=== PATIENT | female | born 1995 | race American Indian/Alaskan Native ===

== ENCOUNTER 2016-04-13 12:42 | Emergency (ER) | payer SELFPAY ==
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
[2016-04-13 14:48] LABS: Basophils % (Auto) 0.4 % (0.0-1.8); Eosinophils % (Auto) 0.6 % (0.0-4.3); Hemoglobin 13.9 gm/dl (10.1-14.3); Mean Corpuscular HGB Conc 34 % (30-34); Mean Corpuscular Hemoglobin 32 pg (28-32); Mean Corpuscular Volume 94 fl (79-97); Platelet Count 334 K/mm3 (140-440); Red Blood Count 4.34 M/mm3 (3.65-5.03); Red Cell Distribution Width 12.9 % (13.2-15.2); White Blood Count 5.8 K/mm3 (4.5-11.0)
--- NOTE | 2016-04-13 15:01 | Emergency Department Report ---
HPI - General Chief Complaint: Psych Time Seen by Provider: 04/13/16 14:54 - HPI HPI: This is a 20-year-old Afro-[place] female presents to the emergency department via police with complaint of auditory hallucinations, suicidal and homicidal ideations. The patient says that she has a history of bipolar disorder and paranoid schizophrenia, although diagnosed about 2 years ago. She was on Risperdal as of one month ago but stopped it because "it was not working" and caused "jaw locking." She denies any current primary care doctor or psychiatrist. Patient says that she is hearing voices that are telling her to harm herself and others. The patient says "I know I'm not supposed to do that but I'm scared." She does not have any plan. Patient says that the voices used to be people that she recognized or had previously known but now they are "demons." She denies any alcohol or illicit drug use or abuse. Patient says she recently quit smoking tobacco. ED Past Medical Hx - Past Medical History Hx Psychiatric Treatment: Yes (Depression/ BIPOLAR / PARANOID SCHIZOPHRENIA) - Surgical History Past Surgical History?: No - Social History Smoking Status: Current Some Day Smoker Substance Use Type: None - Medications Home Medications: Home Medications Medication Instructions Recorded Confirmed Last Taken Type No Known Home Medications [No 06/05/15 04/13/16 Unknown History Reported Home Medications] ED Review of Systems ROS: Stated complaint: HEARING VOICES/SCHIZOPHRENIA Other details as noted in HPI Comment: All other systems reviewed and negative Constitutional: denies: chills, fever Eyes: denies: eye pain, eye discharge, vision change ENT: denies: ear pain, throat pain Respiratory: denies: cough, shortness of breath, wheezing Cardiovascular: denies: chest pain, palpitations Gastrointestinal: denies: abdominal pain, nausea, diarrhea Genitourinary: denies: urgency, dysuria, discharge Musculoskeletal: denies: back pain, joint swelling, arthralgia Skin: denies: rash, lesions Neurological: denies: headache, weakness, paresthesias Psychiatric: auditory hallucinations, homicidal thoughts, suicidal thoughts. denies: visual hallucinations Physical Exam - Physical Exam Vital Signs: Vital Signs 04/13/16 04/13/16 13:19 14:54 Temperature 98.1 F Pulse Rate 92 H Respiratory 17 15 Rate Blood Pressure 111/66 O2 Sat by Pulse 100 Oximetry Physical Exam: GENERAL: The patient is well-developed well-nourished. HEENT: Normocephalic. Atraumatic. Extraocular motions are intact. Patient has moist mucous membranes. He was equal reactive to light bilaterally. NECK: Supple. Trachea is midline. CHEST/LUNGS: Clear to auscultation. There is no respiratory distress noted. HEART/CARDIOVASCULAR: Regular. There is no tachycardia. There is no gallop rub or murmur. ABDOMEN: Abdomen is soft, nontender. Patient has normal bowel sounds. There is no abdominal distention. SKIN: There is no rash. There is no diaphoresis. NEURO: The patient is awake, alert, and oriented. The patient is cooperative. The patient has no focal neurologic deficits. The patient has normal speech and gait. Cranial nerves II through XII grossly intact. MUSCULOSKELETAL: There is no tenderness or deformity. There is no limitation range of motion. There is no evidence of acute injury. ED Course Vital Signs 04/13/16 04/13/16 13:19 14:54 Temperature 98.1 F Pulse Rate 92 H Respiratory 17 15 Rate Blood Pressure 111/66 O2 Sat by Pulse 100 Oximetry ED Medical Decision Making - Lab Data Result diagrams: 04/13/16 14:31 04/13/16 14:31 - Medical Decision Making 20-year-old female with history of paranoid schizophrenia and bipolar disorder presents with complaint of auditory hallucinations that cause suicidal and homicidal ideations. Patient currently calm and appropriate. Vital signs stable throughout her ED course. Patient's labs are mostly unremarkable. Negative blood alcohol level. Presumptive positive for amphetamines and marijuana. Patient has been made a 1013 secondary to her suicidal and homicidal ideations. She is medically cleared for psychiatric placement and the crisis therapist team has been contacted to assist. - Differential Diagnosis bipolar disorder, schizophrenia, schizoaffective, substance abuse Critical Care Time: No Critical care attestation.: If time is entered above; I have spent that time in minutes in the direct care of this critically ill patient, excluding procedure time. ED Disposition Clinical Impression: Auditory hallucinations, Suicidal ideations Schizophrenia Qualifiers: Schizophrenia type: unspecified Qualified Code(s): F20.9 - Schizophrenia, unspecified Disposition: DC/TX PSY HOSP/PSY UNIT Is pt being admited?: No Condition: Stable Time of Disposition: 16:22
[2016-04-13 15:03] LABS: BUN/Creatinine Ratio 12.85; Blood Urea Nitrogen 9 mg/dL (7-17); Calcium 8.8 mg/dL (8.4-10.2); Carbon Dioxide 26 mmol/L (22-30); Chloride 101.2 mmol/L (98-107); Glucose 94 mg/dL (65-100); Potassium 3.8 mmol/L (3.6-5.0); Sodium 142 mmol/L (137-145)
[2016-04-13 15:13] LABS: Anion Gap 19 mmol/L
[2016-04-13 15:40] LABS: Urine Drugs of Abuse Note Disclamer
[2016-04-13 15:56] LABS: Bacteria,Urine 1+ /HPF (Negative); Bilirubin,Urine NEG (Negative); Blood,Urine MOD (Negative); Ketones,Urine NEG (Negative); Leukocyte Esterase,Urine NEG (Negative); Mucus,Urine 3+ /HPF; Nitrite,Urine NEG (Negative); Protein,Urine <15 mg/dL mg/dL (Negative); Urobilinogen,Urine < 2.0 mg/dL (<2.0)
[2016-04-13] MEDS ORDERED: NACL ONE (17:37)
[2016-04-14] MEDS ORDERED: TYLENOL PO PRN (12:43)
[2016-04-14] MEDS ORDERED: ATIVAN ONE (15:56)
[2016-04-15 19:49] VITALS: BP 108/54
== END 2016-04-15 22:45 ==
LOC: EEVIPCON 12:42 → ED 12:42
DX: F20.0 Paranoid schizophrenia (principal); F31.9 Bipolar disorder, unspecified; R44.0 Auditory hallucinations; R45.851 Suicidal ideations; Z72.0 Tobacco use
CPT/HCPCS: 36415; 80048; 80307; 81001; 81025; 85025; 99285; G0480; 80320; J2060

== ENCOUNTER 2016-08-28 22:07 | Emergency (ER) | payer SELFPAY ==
[2016-08-28] MEDS ORDERED: ZOFRAN ONE (22:45)
[2016-08-28] MEDS ORDERED: ZOFRAN IV ONE (22:49)
[2016-08-28] MEDS ORDERED: MAGNESIUM SULFATE 2GM/50ML 0 GM/0 ML BAG IV ONE (22:51)
[2016-08-28 23:01] LABS: Basophils % (Auto) 0.3 % (0.0-1.8); Eosinophils % (Auto) 0.3 % (0.0-4.3); Hematocrit 47.5 % (30.3-42.9); Hemoglobin 16.1 gm/dl (10.1-14.3); Mean Corpuscular HGB Conc 34 % (30-34); Mean Corpuscular Hemoglobin 31 pg (28-32); Mean Corpuscular Volume 92 fl (79-97); Platelet Count 380 K/mm3 (140-440); Red Blood Count 5.14 M/mm3 (3.65-5.03); Red Cell Distribution Width 13.8 % (13.2-15.2); White Blood Count 9.4 K/mm3 (4.5-11.0)
[2016-08-28 23:28] LABS: Alanine Aminotransferase 16 units/L (7-56); Albumin 4.8 g/dL (3.9-5); Albumin/Globulin Ratio 1.1 %; Alkaline Phosphatase 107 units/L (35-129); Anion Gap 25 mmol/L; BUN/Creatinine Ratio 12.22; Blood Urea Nitrogen 11 mg/dL (7-17); Calcium 9.6 mg/dL (8.4-10.2); Carbon Dioxide 26 mmol/L (22-30); Chloride 94.3 mmol/L (98-107); Glucose 132 mg/dL (65-100); Lipase 21 units/L (13-60); Sodium 142 mmol/L (137-145); Total Protein 9.3 g/dL (6.3-8.2)
[2016-08-28 23:37] LABS: Potassium 2.8 mmol/L (3.6-5.0)
[2016-08-29] MEDS ORDERED: NACL 0.9% 1000 ML 1,000 ML ONE (00:32)
[2016-08-29] MEDS ORDERED: K-DUR PO ONE ×3 (00:32→02:56)
[2016-08-29] MEDS ORDERED: REGLAN ONE (00:32)
[2016-08-29] MEDS ORDERED: REGLAN IV ONE (00:32)
[2016-08-29] MEDS ORDERED: NACL 0.9% 1000 ML 1,000 ML IV ONE ×2 (00:33→00:43)
--- NOTE | 2016-08-29 00:35 | Emergency Department Report ---
ED Abdominal Pain HPI - General Chief Complaint: Abdominal Pain Stated Complaint: CP/ABD PAIN/VARGHESE/VOMITING Time Seen by Provider: 08/29/16 00:31 Source: patient Mode of arrival: Ambulatory Limitations: No Limitations - History of Present Illness Initial Comments: Patient is a 21-year-old female, unknown to me, presents to the ER with vomiting and abdominal pain. Patient reports for the last 4 days she's been constantly vomiting unrelated to food, having epigastric pain, and diffuse lower abdominal pain. Patient reports last bowel movement was one week ago but she still having flatus. No history abdominal surgery in the past. She denies any outside travel, or any persons in her home with similar symptoms. Patient has not tried any [id number] medications. Otherwise no fevers, chills, headache, dizziness, chest pain, shortness of breath, extremity pain, extremity swelling, dysuria, hematuria, back pain, travel, or sick contacts. - Related Data Previous Rx's Medication Instructions Recorded Last Taken Type HYDROcodone/APAP 5-325 [[place] 1 each PO Q6HR PRN #10 tablet 05/30/16 Unknown Rx 5/325] Allergies Allergy/AdvReac Type Severity Reaction Status Date / Time sulfamethoxazole Allergy Itching Verified 04/13/16 13:17 [From Bactrim] trimethoprim [From Bactrim] Allergy Itching Verified 04/13/16 13:17 ED Review of Systems ROS: Stated complaint: CP/ABD PAIN/VARGHESE/VOMITING Other details as noted in HPI Comment: All other systems reviewed and negative ED Past Medical Hx - Past Medical History Previous Medical History?: Yes Hx Psychiatric Treatment: Yes (Depression/ BIPOLAR / PARANOID SCHIZOPHRENIA) - Surgical History Past Surgical History?: No - Social History Smoking Status: Never Smoker Substance Use Type: Alcohol, Marijuana - Medications Home Medications: Home Medications Medication Instructions Recorded Confirmed Last Taken Type HYDROcodone/APAP 5-325 [[place] 1 each PO Q6HR PRN #10 tablet 05/30/16 Unknown Rx 5/325] ED Physical Exam - General Limitations: No Limitations General appearance: alert, in no apparent distress, other (Vomiting) - Head Head exam: Present: atraumatic, normocephalic - Eye Eye exam: Present: normal appearance, PERRL, EOMI. Absent: scleral icterus, conjunctival injection, nystagmus Pupils: Present: normal accommodation - ENT ENT exam: Present: normal exam, mucous membranes moist - Neck Neck exam: Present: normal inspection. Absent: tenderness, meningismus - Respiratory Respiratory exam: Present: normal lung sounds bilaterally. Absent: respiratory distress, wheezes, rales, rhonchi, stridor - Cardiovascular Cardiovascular Exam: Present: regular rate, normal rhythm, normal heart sounds. Absent: systolic murmur, diastolic murmur, rubs, gallop - GI/Abdominal GI/Abdominal exam: Present: soft, tenderness (Epigastrium, diffuse RLQ and LLQ,) , normal bowel sounds, hypoactive bowel sounds. Absent: distended, guarding, rebound, rigid - Rectal Rectal exam: Present: deferred - Extremities Exam Extremities exam: Present: normal inspection, full ROM, normal capillary refill. Absent: tenderness, pedal edema, joint swelling - Back Exam Back exam: Present: normal inspection, full ROM. Absent: tenderness - Neurological Exam Neurological exam: Present: alert, oriented X3 - Psychiatric Psychiatric exam: Present: normal affect, normal mood - Skin Skin exam: Present: warm, dry, intact, normal color. Absent: rash ED Course Vital Signs 08/28/16 22:32 Temperature 98.9 F Pulse Rate 101 H Respiratory 18 Rate Blood Pressure 135/74 O2 Sat by Pulse 99 Oximetry ED Medical Decision Making - Lab Data Result diagrams: 08/28/16 22:50 08/28/16 22:50 - EKG Data -: EKG Interpreted by Me - EKG Data 08/29/16 2209 Normal sinus rhythm at 90 bpm, QTC 425 ms, normal axis, LVH, TWI in III, aVF, no ST changes, no STEMI Critical care attestation.: If time is entered above; I have spent that time in minutes in the direct care of this critically ill patient, excluding procedure time. ED Disposition Clinical Impression: Abdominal pain, Nausea and vomiting, Hypokalemia, Dehydration Condition: Stable Instructions: Abdominal Pain (ED)
[2016-08-29] MEDS ORDERED: MORPHINE IV ONE ×2 (00:39→02:56)
[2016-08-29] MEDS: KCL 10MEQ/100ML 10 MEQ/100 ML BAG IV SCH ×6 (01:13→04:30)
--- NOTE | 2016-08-29 02:00 | Cat Scan Report ---
FINAL REPORT PROCEDURE: CT ABDOMEN PELVIS W CON TECHNIQUE: Computerized axial tomography of the abdomen and pelvis was performed after the IV injection of iodinated nonionic contrast. HISTORY: diffuse pain COMPARISON: 06/05/2015 FINDINGS: Visualized lower thorax: No significant abnormality. Liver: Normal size and attenuation. Spleen: Normal size and attenuation. Gallbladder and biliary system: Normal. Pancreas: Normal. Adrenals: Normal. Kidneys: Normal. GI tract: Stomach is normal. Small bowel has a normal appearance with no evidence of obstruction, ileus or enteritis. The cecum, appendix and colon are normal.. Lymph nodes and mesentery: Normal. Vasculature: Normal. Bladder: Normal. Reproductive organs: The uterus is normal. There remains cystic regions in the lower cervical area. Large nabothian cysts are suspected. These have not changed significantly in size or appearance since prior study. On the right a cyst measures 32 millimeters. On the left a cyst measures 11 millimeters.. Peritoneum: No free fluid. Musculoskeletal structures: No significant abnormality. Other: None. IMPRESSION: There is no evidence of intestinal urinary tract obstruction. No ileus or enteritis. The appendix is normal.
[2016-08-29 02:34] VITALS: BP 139/92
== END 2016-08-29 04:54 | disposition home or self-care (01) ==
LOC: ED 22:07
DX: R10.9 Unspecified abdominal pain (principal); R11.2 Nausea with vomiting, unspecified; E87.6 Hypokalemia; E86.0 Dehydration; F12.10 Cannabis abuse, uncomplicated; Z88.2 Allergy status to sulfonamides; Z88.6 Allergy status to analgesic agent
CPT/HCPCS: 36415; 74177; 80053; 83690; 84703; 85025; 93005; 93010; 96361; 96374; 96375; 96376; 99284; J2270; J2405; J2765; J3480; J7030; Q9967; J3475

== ENCOUNTER 2016-09-05 09:30 | Emergency (ER) | payer SELFPAY ==
[2016-09-05] MEDS ORDERED: ZOFRAN ONE (09:58)
[2016-09-05] MEDS ORDERED: ZOFRAN IM ONE (10:00)
[2016-09-05 10:07] LABS: Hematocrit 38.2 % (30.3-42.9); Hemoglobin 12.9 gm/dl (10.1-14.3); Mean Corpuscular HGB Conc 34 % (30-34); Mean Corpuscular Hemoglobin 31 pg (28-32); Mean Corpuscular Volume 93 fl (79-97); Platelet Count 348 K/mm3 (140-440); Red Blood Count 4.11 M/mm3 (3.65-5.03); Red Cell Distribution Width 13.5 % (13.2-15.2); White Blood Count 8.9 K/mm3 (4.5-11.0)
[2016-09-05 10:21] LABS: Anion Gap 19 mmol/L; Blood Urea Nitrogen 8 mg/dL (7-17); Carbon Dioxide 21 mmol/L (22-30); Chloride 103.3 mmol/L (98-107); Glucose 114 mg/dL (65-100); Potassium 3.3 mmol/L (3.6-5.0); Sodium 140 mmol/L (137-145)
[2016-09-05 11:53] LABS: Anisocytosis Few; Basophils % (Manual) 0 % (0.0-1.8); Blastocytes % (Manual) 0 %; Diff Status Complete; Eosinophils % (Manual) 0 % (0.0-4.3)
[2016-09-05 20:35] LABS: Alanine Aminotransferase 9 units/L (7-56); Albumin 4.2 g/dL (3.9-5); Albumin/Globulin Ratio 1.4 %; Alkaline Phosphatase 92 units/L (35-129); Total Protein 7.2 g/dL (6.3-8.2)
[2016-09-05 20:46] LABS: Bilirubin,Direct < 0.2 mg/dL (0-0.2); Bilirubin,Indirect 0.3 mg/dL
[2016-09-05] MEDS ORDERED: K-DUR PO ONE (21:42)
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
[2016-09-05] MEDS ORDERED: ZOFRAN ODT ONE (22:38)
[2016-09-05] MEDS ORDERED: PHENERGAN PR ONE (22:54)
[2016-09-05] MEDS ORDERED: ZOFRAN ODT PO ONE (23:05)
[2016-09-06 00:06] LABS: Bacteria,Urine 2+ /HPF (Negative); Bilirubin,Urine NEG (Negative); Blood,Urine SM (Negative); Ketones,Urine 20 mg/dL (Negative); Leukocyte Esterase,Urine MOD (Negative); Mucus,Urine 2+ /HPF; Nitrite,Urine NEG (Negative); Urobilinogen,Urine < 2.0 mg/dL (<2.0)
[2016-09-06] MEDS ORDERED: ROCEPHIN IM ONE (01:10)
[2016-09-06] MEDS ORDERED: XYLOCAINE 1% MPF 5 mL INFILTRATI ONE (01:10)
[2016-09-06] MEDS ORDERED: TORADOL IM ONE (01:11)
[2016-09-06] MEDS ORDERED: ZITHROMAX PO ONE (01:11)
[2016-09-06] MEDS ORDERED: FLAGYL PO ONE (01:11)
[2016-09-06 02:25] VITALS: BP 105/78
== END 2016-09-06 02:24 | disposition home or self-care (01) ==
LOC: ED 09:30
DX: N89.8 Other specified noninflammatory disorders of vagina (principal); R11.2 Nausea with vomiting, unspecified; E87.6 Hypokalemia; F20.9 Schizophrenia, unspecified; F32.9 Major depressive disorder, single episode, unspecified; F17.200 Nicotine dependence, unspecified, uncomplicated; Z88.2 Allergy status to sulfonamides; Z88.8 Allergy status to other drugs, medicaments and biological substances
CPT/HCPCS: 36415; 51701; 80048; 80074; 81001; 84703; 85007; 85025; 96372; 99284; J0696; J1885; J2405; Q0162